=== PATIENT | female | born 1950 | race Two or more races ===

== ENCOUNTER 2017-12-20 10:38 | Inpatient (IN) | payer OTHER ==
[~2017-12-20] VITALS: Ht 160 cm; Wt 82.6 kg
[2017-12-20] MEDS ORDERED: LEVOFLOXACIN750 MG (10:46)
[2017-12-20] MEDS ORDERED: LORATADINE10 MG (10:46)
[2017-12-20] MEDS ORDERED: ADVAIR HFA 230/12 GM (10:47)
[2017-12-20] MEDS ORDERED: DESLORATADINE5 MG (10:47)
[2017-12-20] MEDS ORDERED: ALBUTEROL S5 MG/1 ML (10:49)
[2017-12-28] MEDS ORDERED: LEVAQUIN750 MG PO (10:26)
[2017-12-28] MEDS ORDERED: FLAGYL500MG PO (10:27)
[2017-12-28] MEDS ORDERED: PROTONIX40 MG PO (10:28)
[2017-12-28] MEDS ORDERED: INTESTINEX680 M1 PO (10:28)
[2017-12-28] MEDS ORDERED: ZANTAC150 MG PO (10:29)
== END 2017-12-28 13:44 | disposition home or self-care (01) | DRG 392 ==
LOC: ER 10:38 → SEC-K 23:06 → MEDJ 12-21 15:00
PROC: BW21YZZ Computerized Tomography (CT Scan) of Abdomen and Pelvis using Other Contrast (ICD-10-PCS; 2017-12-20)
PROC: 3E0F7GC Introduction of Other Therapeutic Substance into Respiratory Tract, Via Natural or Artificial Opening (ICD-10-PCS; principal; 2017-12-21)
PROC: 3E0436Z Introduction of Nutritional Substance into Central Vein, Percutaneous Approach (ICD-10-PCS; 2017-12-21)
PROC: 02H633Z Insertion of Infusion Device into Right Atrium, Percutaneous Approach (ICD-10-PCS; 2017-12-21)
PROC: BW21YZZ Computerized Tomography (CT Scan) of Abdomen and Pelvis using Other Contrast (ICD-10-PCS; 2017-12-24)
DX: K57.20 Diverticulitis of large intestine with perforation and abscess without bleeding (principal); J45.998 Other asthma; R00.2 Palpitations

== ENCOUNTER 2018-01-22 08:28 | Inpatient (IN) | payer OTHER ==
[~2018-01-22] VITALS: Ht 160 cm; Wt 80.7 kg
[~2018-01-22 08:28] MED LIST: ADVAIR HFA 230/12 GM; ALBUTEROL S5 MG/1 ML; DESLORATADINE5 MG; FLAGYL500MG PO; INTESTINEX680 M1 PO; LEVAQUIN750 MG PO; LEVOFLOXACIN750 MG; LORATADINE10 MG; PROTONIX40 MG PO; ZANTAC150 MG PO
[2018-01-28] MEDS ORDERED: INTESTINEX680 M1 PO (14:34)
[2018-01-28] MEDS ORDERED: AMOX-CLAV 875-1 EACH PO (14:34)
[2018-01-28] MEDS ORDERED: PROTONIX40 MG PO (14:35)
[2018-01-28] MEDS ORDERED: NORFLEX100MG PO (14:38)
== END 2018-01-28 19:22 | disposition home or self-care (01) | DRG 392 ==
LOC: ER 08:28 → MEDJ 16:56
PROC: BW21Y0Z Computerized Tomography (CT Scan) of Abdomen and Pelvis using Other Contrast, Unenhanced and Enhanced (ICD-10-PCS; principal; 2018-01-22)
PROC: 3E0F7GC Introduction of Other Therapeutic Substance into Respiratory Tract, Via Natural or Artificial Opening (ICD-10-PCS; 2018-01-22)
PROC: 05H633Z Insertion of Infusion Device into Left Subclavian Vein, Percutaneous Approach (ICD-10-PCS; 2018-01-23)
PROC: 3E0436Z Introduction of Nutritional Substance into Central Vein, Percutaneous Approach (ICD-10-PCS; 2018-01-23)
DX: K57.32 Diverticulitis of large intestine without perforation or abscess without bleeding (principal); J45.998 Other asthma; R00.2 Palpitations

== ENCOUNTER 2018-02-02 02:31 | Emergency (ER) | payer OTHER ==
[~2018-02-02] VITALS: Ht 160 cm; Wt 78.9 kg
[~2018-02-02 02:31] MED LIST changes: +AMOX-CLAV 875-1 EACH PO; +NORFLEX100MG PO
== END 2018-02-02 16:45 ==
LOC: ER 02:31
DX: I82.622 Acute embolism and thrombosis of deep veins of left upper extremity (principal); M54.2 Cervicalgia

== ENCOUNTER 2018-02-22 13:50 | Outpatient (CLI) | payer OTHER | END 2018-02-22 14:00 | disposition home or self-care (01) | LOC: NUCLEAR 13:50 | DX: I82.B12 Acute embolism and thrombosis of left subclavian vein (principal) ==

== ENCOUNTER 2018-04-02 07:48 | Outpatient (CLI) | payer OTHER | END 2018-04-02 08:30 | disposition home or self-care (01) | LOC: NUCLEAR 07:48 | DX: I82.522 Chronic embolism and thrombosis of left iliac vein (principal) ==

== ENCOUNTER 2018-04-12 08:30 | Inpatient (IN) | payer OTHER ==
[~2018-04-12] VITALS: Ht 160 cm; Wt 81.2 kg
[2018-04-12] MEDS ORDERED: FUSION PLUS CA1 EACH PO (09:36)
[2018-04-12] MEDS ORDERED: MIRALAX17 GM PO (09:36)
[2018-04-12] MEDS ORDERED: XARELTO20 MG PO (09:36)
[2018-04-12] MEDS ORDERED: RESTASIS1 EACH OP (09:37)
[2018-04-22] MEDS ORDERED: PERCOCET 5-3251 EACH PO (11:26)
[2018-04-22] MEDS ORDERED: INTESTINEX680 M1 PO (11:26)
[2018-04-22] MEDS ORDERED: OMEPRAZOLE20 M1 PO (11:26)
[2018-04-23] MEDS ORDERED: PERCOCET 5-3251 EACH PO (11:41)
[2018-04-23] MEDS ORDERED: OMEPRAZOLE20 MG PO (11:41)
[2018-04-23] MEDS ORDERED: INTESTINEX680 M1 PO (11:41)
== END 2018-04-23 13:07 | disposition home or self-care (01) | DRG 330 ==
LOC: SURG 04-19 05:50 → SURH 04-19 05:50 → O/R 04-19 05:50 → SURG 04-19 08:30 → SURH 04-20 09:47
PROVIDERS: Surgery
PROC: 0DJD8ZZ Inspection of Lower Intestinal Tract, Via Natural or Artificial Opening Endoscopic (ICD-10-PCS; 2018-04-19)
PROC: 0DTE4ZZ Resection of Large Intestine, Percutaneous Endoscopic Approach (ICD-10-PCS; principal; 2018-04-19 13:45)
DX: K57.20 Diverticulitis of large intestine with perforation and abscess without bleeding (principal); I97.89 Other postprocedural complications and disorders of the circulatory system, not elsewhere classified; J45.998 Other asthma; R00.0 Tachycardia, unspecified

== ENCOUNTER 2018-05-17 10:21 | Outpatient (CLI) | payer OTHER ==
[~2018-05-17 10:21] MED LIST changes: +FUSION PLUS CA1 EACH PO; +MIRALAX17 GM PO; +OMEPRAZOLE20 M1 PO; +OMEPRAZOLE20 MG PO; +PERCOCET 5-3251 EACH PO; +RESTASIS1 EACH OP; +XARELTO20 MG PO
== END 2018-05-17 11:00 | disposition home or self-care (01) ==
LOC: NUCLEAR 10:21
DX: I82.B22 Chronic embolism and thrombosis of left subclavian vein (principal)

== ENCOUNTER 2018-10-10 11:08 | Outpatient (CLI) | payer OTHER | END 2018-10-10 11:19 | disposition home or self-care (01) | LOC: RAD 11:08 → MRI 11:15 → RAD 11:19 | DX: Z12.31 Encounter for screening mammogram for malignant neoplasm of breast (principal); N64.4 Mastodynia; M25.561 Pain in right knee; M25.562 Pain in left knee | CPT/HCPCS: 73718 ==

== ENCOUNTER → 2018-11-11 | Outpatient (CLI) | payer OTHER | END | disposition home or self-care (01) | LOC: NUCLEAR 10:30 | DX: I82.622 Acute embolism and thrombosis of deep veins of left upper extremity (principal) ==

== ENCOUNTER 2019-06-23 09:16 | Day surgery (SDC) | payer OTHER ==
[~2019-06-23 09:16] MED LIST changes: +ADVAIR HFA 115/12 GM; +BIOTIN1 MG; +CLARITIN10 M2; +FLECAINIDE ACET50 MG PO; +PROBIOTIC1 EAC2
== END 2019-06-23 13:50 | disposition home or self-care (01) ==
LOC: AMB-ENDOS 09:16
DX: K57.30 Diverticulosis of large intestine without perforation or abscess without bleeding (principal); K64.1 Second degree hemorrhoids

== ENCOUNTER 2020-12-28 09:00 | Inpatient (IN) | payer OTHER ==
[~2020-12-28] VITALS: Ht 160 cm; Wt 88.9 kg
[2020-12-28] MEDS ORDERED: TESSALON PERLE100 MG PO (12:34)
[2020-12-28] MEDS ORDERED: LEVALBUTEROL TA15 GM IH (12:34)
== END 2021-01-07 14:26 | DRG 470 ==
LOC: SURG 01-04 05:30 → O/R 01-04 05:30 → SURH 01-04 09:00 → SURG 01-04 11:14 → SURH 01-04 11:45 → SURG 01-07 14:26
PROVIDERS: ADMIT Orthopaedic Surgery; ATTEND Orthopaedic Surgery
PROC: 3E0F7SF Introduction of Other Gas into Respiratory Tract, Via Natural or Artificial Opening (ICD-10-PCS; 2021-01-04)
PROC: 0SRC0J9 Replacement of Right Knee Joint with Synthetic Substitute, Cemented, Open Approach (ICD-10-PCS; principal; 2021-01-04 11:45)
DX: M17.11 Unilateral primary osteoarthritis, right knee (principal); Z20.822 Contact with and (suspected) exposure to COVID-19

== ENCOUNTER 2024-08-25 09:53 | Emergency (ER) | payer OTHER ==
[~2024-08-25] VITALS: Ht 160 cm; Wt 89.8 kg
[~2024-08-25 09:53] MED LIST changes: +AZELASTIN-FLUTI23 GM; +FEXOFENADINE HC60 MG; +FLUOROMETHOLONE5 ML; +GABAPENTIN300 M2; +LEVALBUTEROL TA15 GM IH; +MAXIMUM D3325 MCG; +MUCUS RELIEF400 MG; +TESSALON PERLE100 MG PO; +WIXELA 500-501 EACH
[2024-08-25] MEDS ORDERED: DIOVAN160 M1 PO (11:22)
[2024-08-25] MEDS ORDERED: GRALISE600 MG PO (11:23)
[2024-08-25] MEDS ORDERED: EZALLOR SPRINKL10 MG PO (11:23)
[2024-08-25] MEDS ORDERED: NAPROXEN500 M1 PO (11:24)
[2024-08-25] MEDS ORDERED: XOPENEX HFA15 GM IH (11:24)
[2024-08-25] MEDS ORDERED: DOLOGESIC 500-1 EACH PO (11:24)
[2024-08-25] MEDS ORDERED: CLARITIN10 M1 PO (11:25)
[2024-08-25] MEDS ORDERED: BENZONATATE200 M1 PO (11:25)
[2024-08-25] MEDS ORDERED: ROSADAN45 G1 TP (11:26)
[2024-08-25] MEDS ORDERED: ALLEGRA ALLERGY60 MG PO (11:26)
[2024-08-25] MEDS ORDERED: AZELASTINE137 MCG/0. NS (11:26)
[2024-08-25] MEDS ORDERED: FAMOTIDINE/PF 20 MG in 0.9 % SODIUM CHLORIDE 8 ML IV PUSH STA (11:43)
[2024-08-25] MEDS ORDERED: 0.9 % SODIUM CHLORIDE 1,000 ML IV SCH (11:45)
[2024-08-25] MEDS ORDERED: ONDANSETRON HCL 2 MG/ML VIAL IV ONE (11:45)
[2024-08-25] MEDS ORDERED: MEPERIDINE HCL/PF 50 MG/ML VIAL IM ONE (11:45)
[2024-08-25 12:34] LABS: HEMATOCRIT 41.9 % (36.0-45.00); HEMOGLOBIN 13.9 g/dL (12.0-15.00); MEAN CELL VOLUME 81.8 fL (80.00-100.00); MEAN CORPUSCULAR HEMOGLOBIN 27.1 pg (27.00-32.0); MEAN CORPUSCULAR HGB CONC 33.2 g/dl (32.0-36.0); PLATELET COUNT 259 K/uL (150-450); RED BLOOD COUNT 5.13 M/uL (4.00-6.00); RED CELL DISTRIBUTION WIDTH 14.7 % (11.5-14.5)
[2024-08-25 13:08] LABS: PH,URINE 5.5 (5.0-8.0); URINE APPEARANCE Clear; URINE BILIRRUBIN Negative (NEGATIVE); URINE BLOOD Small; URINE COLOR Yellow; URINE GLUCOSE Negative (NEGATIVE); URINE KETONE Negative (NEGATIVE); URINE LEUKOCYTE Trace; URINE NITRATE Negative; URINE PROTEIN Negative (NEGATIVE); URINE UROBILINOGEN 0.2 E.U./dl
[2024-08-25 13:12] LABS: URINE BACTERIA 154.2 uL (0.0-1933); URINE EPITHELIAL CELLS 28.1 uL (0.0-38.8); URINE RBC 57.7 uL (0.0-20.8); URINE WBC 19.9 uL (0.0-23.2)
[2024-08-25 13:30] LABS: URINE CAST 0.29 uL (0.0-1.40); URINE MUCUS HEAVY
[2024-08-25 13:39] LABS: ALBUMIN 3.5 gm/dL (3.4-5.0); BILIRUBIN TOTAL 0.5 mg/dL (0.3-1.2); CALCIUM 8.9 mg/dL (8.5-10.1); CREATININE SERUM 0.57 mg/dL (0.55-1.02); GFR 103.97; GLOBULINA 3.5 G/DL (2.4-3.5); POTASSIUM 3.72 mEq/L (3.5-5.1)
[2024-08-25] MEDS ORDERED: PIPERACILLIN/TAZOBACTAM SODIUM 3.375 GM in 0.9 % SODIUM CHLORIDE 100 ML IV ONE (14:30)
[2024-08-25] MEDS ORDERED: OMEPRAZOLE40 MG PO (15:04)
[2024-08-25] MEDS ORDERED: CIPRO500 MG PO (15:04)
[2024-08-25] MEDS ORDERED: METRONIDAZOLE500 MG PO (15:04)
[2024-08-25] MEDS ORDERED: PROBIOTIC1 EAC2 PO (15:04)
[2024-08-25] MEDS ORDERED: LEVSIN/SL0.125 MG SL (15:04)
== END 2024-08-25 16:30 | disposition home or self-care (01) ==
LOC: ER 09:55
PROVIDERS: General Practice
DX: K57.92 Diverticulitis of intestine, part unspecified, without perforation or abscess without bleeding (principal); R10.9 Unspecified abdominal pain; I10 Essential (primary) hypertension; Z88.6 Allergy status to analgesic agent
CPT/HCPCS: 36415; 74176; 96365; 96366; 96372; 99284; J2405; J2543; J3490 ×2; J7030